=== PATIENT | female | born 2000 | race Asian ===

== ENCOUNTER 2021-01-02 20:12 | Observation (INO) ==
[2021-01-02] MEDS ORDERED: NS 0.9% 1000 ml BAG 1,000 ML IV ONE ×2 (20:20→22:00)
[2021-01-02 20:47] LABS: ABS Lymphocytes 0.5 10^3/ul (1.0-4.8); ABS Monocytes 0.8 10^3/ul (0-0.8); ABS Neutrophils 14.6 10^3/ul (1.5-7.7); Eosinophil % 0.1 %; Hematocrit 41 % (35-47); Hemoglobin 14.2 g/dL (12.0-16.0); Lymphocyte % 2.9 %; Mean Corpuscular HGB Conc 35 g/dL (31-36); Mean Corpuscular Hemoglobin 31 pg (27-31); Mean Corpuscular Volume 90 fL (80-97); Platelet Count 167 10^3/uL (150-450); Red Blood Count 4.55 10^6 /uL (3.70-4.87); Red Cell Distribution Width 13 % (10-15); White Blood Count 15.9 10^3/uL (3.5-10.8)
[2021-01-02 21:02] LABS: ALT 19 U/L (7-52); AST 36 U/L (13-39); Albumin/Globulin Ratio 1.4 (1-3); Alkaline Phosphatase 52 U/L (35-149); Anion Gap 12 mmol/L (2-11); Blood Urea Nitrogen 11 mg/dL (6-24); CO2 Carbon Dioxide 22 mmol/L (22-32); Calcium 10.2 mg/dL (8.6-10.3); Chloride 99 mmol/L (101-111); EGFR Non-African American 101.6 (>60); Globulin 3.5 g/dL (2-4); Glucose 163 mg/dL (70-100); Magnesium 1.6 mg/dL (1.9-2.7); Potassium 3.6 mmol/L (3.5-5.0); Sodium 133 mmol/L (135-145); Total Protein 8.5 g/dL (6.4-8.9)
[2021-01-02 21:09] LABS: HCG Pregnancy < 0.60 mIU/mL
[2021-01-02] MEDS ORDERED: Magnesium Sulfate 2 gm BAG 2 GM/50 ML BAG IVPB ONE (22:00)
[2021-01-02 22:36] LABS: C Reactive Protein 3.08 mg/L (<8.01)
[2021-01-03] LABS: Urine Appearance Cloudy; Urine Bacteria Absent (Absent); Urine Bilirubin Negative (Negative); Urine Blood 2+ (Negative); Urine Color Yellow; Urine Glucose Negative (Negative); Urine Ketones 1+ (Negative); Urine Nitrite Negative (Negative); Urine Protein Negative (Negative); Urine Red Blood Cell Trace(0-2/hpf) (Absent); Urine Specific Gravity 1.009 (1.002-1.030); Urine Squamous Epithelial Cell Present (Absent); Urine Urobilinogen Negative (Negative); Urine White Blood Cell Trace(0-5/hpf) (Absent)
[2021-01-03] MEDS ORDERED: Iohexol 300 (CONTRAST) 10 ML SDV IV ONE (00:22)
[2021-01-03] MEDS ORDERED: Ondansetron 4 mg VIAL 2 MG/ML 2 ml VIAL IV PRN ×2 (02:02→11:36)
[2021-01-03] MEDS ORDERED: HYDROmorphone 0.5 MG/0.5 ML SYRINGE IV SLOW PU PRN (02:31)
[2021-01-03] MEDS ORDERED: Zosyn 3.375 GM IV - ED ONCE IV ONE (02:45)
[2021-01-03 02:51] LABS: Rapid COVID-19 Molecular Undetected (Undetected)
[2021-01-03] MEDS: NS 0.9% 1000 ml BAG 1,000 ML IV SCH ×2 (02:59→07:39)
[2021-01-03] MEDS: Piperacillin/Tazobactam VIAL 3.375 GM in NS 0.9% 100 ml BAG 100 ML IVPB SCH ×2 (07:37→15:26)
[2021-01-03 10:01] LABS: Activated Partial Thrombo Time 35.2 seconds (26.0-38.0); INR 1.71 (0.86-1.15)
[2021-01-03] MEDS ORDERED: Lidocaine 2% PF 5 ML VIAL ONE (10:18)
[2021-01-03] MEDS ORDERED: Ondansetron 4 mg VIAL 2 MG/ML 2 ml VIAL ONE (10:19)
[2021-01-03] MEDS ORDERED: Rocuronium 50 mg VIAL 10 mg/ml 5 ml VIAL (50 mg) ONE (10:19)
[2021-01-03] MEDS ORDERED: Propofol 10 MG/ML 20 ML BTL ONE (10:19)
[2021-01-03] MEDS ORDERED: Midazolam 2 mg/2 ml VIAL 1 mg/ml 2 ml VIAL (2 mg) ONE (10:19)
[2021-01-03] MEDS ORDERED: Dexamethasone IV 4 MG/ML VIAL 1 ml VIAL ONE (10:19)
[2021-01-03] MEDS ORDERED: fentaNYL 100 mcg/2 ml 50 MCG/ML VIAL ONE (10:20)
[2021-01-03] MEDS ORDERED: Famotidine IV 10 MG/ML 2 ml VIAL (20 mg) ONE (10:52)
[2021-01-03] MEDS ORDERED: Acetaminophen IV 1 GM/100ML 100 ML IV ONE (11:30)
[2021-01-03] MEDS ORDERED: Naloxone 0.4 mg VIAL 0.4 mg/ml 1 ml VIAL IV PRN (11:36)
[2021-01-03] MEDS ORDERED: DiMENhydriNATE IV 50 mg/ml 1 ml VIAL IV PUSH PRN (11:36)
[2021-01-03] MEDS ORDERED: fentaNYL 100 mcg/2 ml 50 MCG/ML VIAL IV PRN (11:36)
[2021-01-03] MEDS ORDERED: Bupivacaine 0.25% SDV 30 ML ONE (12:04)
[2021-01-03] MEDS ORDERED: Bacitracin OINTMENT TUBE ONE (12:05)
[2021-01-03] MEDS ORDERED: oxyCODONE/Acetamin 5/325 mg TAB PO PRN (12:30)
[2021-01-04] MEDS: Piperacillin/Tazobactam VIAL 3.375 GM in NS 0.9% 100 ml BAG 100 ML IVPB SCH ×2 (00:10→08:14)
[2021-01-04 12:14] VITALS: BP 110/55
== END 2021-01-04 14:35 | disposition home or self-care (01) ==
LOC: ED 20:12 → SSU 01-03 03:02 → INTOOBSV 01-03 03:02 → SSU 01-03 03:17
PROVIDERS: ADMIT Surgery; ATTEND Surgery